=== PATIENT | male | born 1990 | race Two or more races ===

== ENCOUNTER 2024-05-15 09:32 | Emergency (ER) | payer MEDICAID ==
[~2024-05-15] VITALS: Ht 175.3 cm; Wt 81.6 kg
[2024-05-15] MEDS ORDERED: IBUP-1955 PO (11:23)
[2024-05-15 12:31] VITALS: BP 119/74; TEMP 97.9; O2SAT 96
== END 2024-05-15 12:35 | disposition home or self-care (01) ==
LOC: ER 09:40
DX: S83.91XA Sprain of unspecified site of right knee, initial encounter (principal); X50.1XXA Overexertion from prolonged static or awkward postures, initial encounter; Y93.89 Activity, other specified; Y92.89 Other specified places as the place of occurrence of the external cause; Y99.8 Other external cause status
CPT/HCPCS: 73564-TC